=== PATIENT | female | born 2000 | race Caucasian/White ===

== ENCOUNTER 2024-11-12 12:32 | Emergency (ER) | payer OTHER, SELFPAY ==
[2024-11-12 12:42] VITALS: BP 112/71; PULSE 100; RESP 18; TEMP 36.4; O2SAT 100
--- OUTSIDE RECORDS SUMMARY | 2024-11-12 12:51 | XMS_ITS | Clinical Summary ---
Author Organization [facility] Address [address] [place] [id number] Care Team Providers Care Mortgage Loan Officer Name Role Phone Ghanshyam Chaudhary MD Primary Care Provider + Social History Tobacco Use Types Packs/Day Years Used Date Smoking Tobacco: Never Assessed Comments Unknown Sex and Gender Information Value Date Recorded Sex Assigned at Not on file Legal Sex Female 12:08 PM CDT Gender Identity Not on file Sexual Orientation Not on file Plan of Treatment Health Maintenance Due Date Last Done Comments Annual Physical 2003 HPV Vaccines (1 - 3-dose series) 2015 DTaP, Tdap and Td Vaccines ( 1 - Tdap) 2019 Hepatitis B Vaccines (1 of 3 - 19+ 3-dose series) 2019 COVID-19 Vaccine (2023-2 5 season) 2024 Cervical Cancer Screening Pa p Smear (Age 21 to 29) Every 3 Years 01/17/2026 01/17/2023, 06/04/2022, 06/04/2022 Cervical Cancer Screening 01/17/2026 Hepatitis C Completed 01/17/2023 Meningococcal B Vaccine Aged Out No l onger eligible based on patient's age to complete this topic Meningococcal Vaccine Aged Out No josé miguel gia eligible based on patient's age to complete this topic Pneumococcal Vaccine: Pediatrics (0 to 5 Years) and At-Risk Patients (6 to 49 Years) Aged Out No longer eligible b ased on patient's age to complete this topic RSV Immunizations Under 20 Months Aged Out No longer eligible b ased on patient's age to complete this topic Procedures Procedure Name Priority Date/Time Associated Diagnosis Comments HEPATITIS C ANTIBODY Routine 01/17/2023 12:00 PM CDT Encounter for supervision of normal , unspecified, unspecified trimester (HHS/HCC) CYTOPATH CERV/VAG THIN LAYER Routine 01/17/2023 6:56 AM CDT from Last 3 Months or Most Recently Relevant to Health Maintenance Results * HEPATITIS C ANTIBODY (01/17/2023 12:00 PM CDT) HEPATITIS C AB NON-REACTI VE NON-REACT MICHELLE 01/17/2023 7:55 PM CDT [facility] Comment: ANTIBODIES TO HCV NOT DETECTED. DOES NOT EXCLUDE THE POSSIBILITY OF EXPOSURE TO HCV. 01/17/2023 12:0 0 PM CDT Juan Moore MD LABORATORY Final Result [facility] [address] [place] [id number], [id number] * Cytopath Cerv/Vag Thin Layer (01/17/2023 6:56 AM CDT) THIN PREP PAP [address] [id number] Department of Pathology Pathology Report CERVICAL/VAGINAL PAP SMEAR REPORT Name: DENA FAUSTIN Age: 1 2000 (Age: 22) Location: [facility] Sex: F Collected Date: 01/17/2023 Hospital #: [id number] Date Received: 01/21/2023 Date Reported: 02/06/2023 Provider: JUAN CHAUDHARY MD INTERPRETATION CERVICAL/ENDOCERVI DEREK: SATISFACTORY FOR EVALUATION. ENDOCERVICAL/TRANS FORMATION ZONE COMPONENT ABSENT. NEGATIVE FOR INTRAEPITHELIAL LESION OR MALIGNANCY. Electronically Signed Out [facility] DEEPIKA Henning (ASCP) CLINICAL HISTORY Z34.90 ThinPrep Pap Test with HR HPV testing in patient > 21 years with ASC-US diagnosis. Menstrual Status: SPECIMEN SUBMITTED CERVICAL/ENDOCERVI DEREK Specimen Received:1 Thin Prep Vial, Image Assisted Pap (SMD) Please note: The Pap smear is not a diagnostic test. It is a screening test. Negative results on combined screening (Pap test and HPV-DNA) have a high negative predictive value (99.1-100 percent) for cervical cancer. The pap test is not effective in detecting cervical adenocarcinoma. [facility] 01/17/2023 6:56 AM CDT 01/21/2023 6:56 AM CDT Comment:CERVICAL/ENDOCERVICA L us Juan Moore MD PATHOLOGY/CYTOLOGY ORDERABLES F inal Result [facility] [address] [place] [address], from Last 3 Months or Most Recently Relevant to Health Maintenance Insurance AET T Care Teams Mortgage Loan Officer Relationship Specialty Start Date End Date Ghanshyam Chaudhary MD [address] [place] [address] [place] [address] PCP - General FAMILY PRACTICE 01/17/23
--- NOTE | 2024-11-12 12:52 | ED.ABDPAIN ---
HPI - Abdominal Pain General Chief Complaint: Nausea/Vomiting/Diarrhea Stated Complaint: diarrhea Source: patient and RN notes reviewed Mode of arrival: ambulatory Limitations: no limitations History of Present Illness HPI narrative: 24-year-old female presented for complaint of nausea and diarrhea, and subjective fever/chills. Onset 4 days. Also endorses a persistent headache and generalized weakness for the last 2 days. Patient has tolerated crackers and toast. Denies significant abdominal pain or vomiting. Not taking anything for symptoms. had similar symptoms at onset. Denies recent antibiotic use. Related Data Home Medications ?Medication ?Instructions ?Recorded ?Confirmed ?Last Taken ?Type No Home Medications 11/12/24 11/12/24 Unknown History Allergies Allergy/AdvReac Type Severity Reaction Status Date / Time No Known Allergies Allergy Verified 11/12/24 12:50 Review of Systems Review of Systems: CONSTITUTIONAL: Denies body aches, reports fever, chills ENT: Denies rhinorrhea, congestion CARDIOVASCULAR: Denies chest pain, palpitations, or edema. RESPIRATORY: Denies cough or dyspnea. GASTROINTESTINAL: Endorses nausea, diarrhea. Denies abdominal pain, vomiting, hematochezia, melena GENITOURINARY: Denies dysuria, hematuria, or CVA tenderness. SKIN: Denies rash MUSCULOSKELETAL: Denies back pain, joint pain, or myalgia. NEUROLOGIC: Reports headache, weakness denies numbness, tingling All systems reviewed & are unremarkable except as noted in HPI and below PMFSH Comments At time of signature, I have reviewed and agree with nursing past medical, surgical, social and family history unless otherwise noted. Please see nursing chart for further information. There is no relevant family history pertinent to the presenting complaint Exam Narrative: GENERAL: Well-appearing EYES: EOMI. Conjunctivae normal. ENT: Mucous membranes pink and moist. CHEST: No respiratory distress. Clear to auscultation. HEART: Regular rate and rhythm. No murmur appreciated. Normal peripheral pulses. ABDOMEN: abd soft, nondistended, normal active bowel sounds. nontender abdomen; No guarding, rebound tenderness, asymmetry EXTREMITIES: Normal range of motion. SKIN: Warm, dry, no rash. Capillary refill normal. Normal skin turgor. NEURO: No focal deficits. Alert and oriented x3. PSYCH: Normal affect. Course Course Emergency Course: Patient is aware of diagnosis, understands and agrees to treatment plan. Anticipatory guidance given. Patient agrees to follow-up as directed and is aware of reasons to seek care at the emergency department. Portions of this record may have been created with voice recognition software Level of Care: Express Care Visit Vital Signs Vital signs: Vital Signs Temperature 97.6 F 11/12/24 12:42 Pulse Rate 100 11/12/24 12:42 Respiratory Rate 18 11/12/24 12:42 Blood Pressure 112/71 11/12/24 12:42 Pulse Oximetry 100 11/12/24 12:42 Oxygen Delivery Room Air 11/12/24 12:42 Temperature 97.6 F 11/12/24 12:42 Pulse Rate 100 11/12/24 12:42 Respiratory Rate 18 11/12/24 12:42 Blood Pressure 112/71 11/12/24 12:42 Pulse Oximetry 11/12/24 12:42 Oxygen Delivery Room Air 11/12/24 12:42 MDM - Abdominal Pain MDM Narrative Medical decision making narrative: Discussed physical exam findings c/w gastroenteritis. Pt declines ER transfer at this time. Advised supportive measures and signs/symptoms to go to the ER at length. Pt is appropriate for outpt treatment and f/u. Differential Diagnosis Differential diagnosis: Likely abdominal pain, constipation, diverticulitis, gastroenteritis, pancreatitis and small bowel obstruction Discharge Plan Discharge Clinical Impression: Acute diarrhea Patient Disposition: Home Condition: Stable Instructions: Gastroenteritis (ED) Additional Instructions: Stay hydrated. Take small sips of fluid containing electrolytes frequently. Clear liquids (broth, jello, tea, sprite, pedialyte) slowly advance to [place] foods (bananas, rice, applesauce, toast, crackers) Avoid fatty, greasy, fried or spicy foods. Limit dairy until symptoms are improved. [id number] Imodium according to package directions Recommend probiotic such as align or lactobacillus to help with symptoms. You should go to the hospital if you experience persistent nausea and vomiting that does not resolve and does not allow you to tolerate any food or fluids, fevers, increasing abdominal pain, persistent diarrhea, dizziness, fainting, or for any other concerns. Follow up with primary care provider in 2 days. Patient Language: Angolan Follow-up/Referrals: PHYSICIAN,TETRYL DISSOLVER OPERATOR [Primary Care Provider] - Time of Disposition: 12:53
--- OUTSIDE RECORDS SUMMARY | 2024-11-12 12:52 | XMS_ITS | Continuity of Care Document ---
Author Name [facility] Organization 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 Unavailable Unavailable Problems Combined list of problems from Department of Defense and Veterans Affairs facilities. It does not include entries that were removed or entered in error. Problem Status Onset Date Problem Type Date of Resolution Comments Source ASSESSMENT, POST-DEPLOYMENT, DOCUMENTED ON [id number] Inactive 03/15/2022 Condition DoD Acute sinusitis, unspecified Inactive 03/04/2022 Condition DoD Pain in left lower leg Active Condition DoD Pain in right lower leg Active Condition DoD Plantar fascial fibromatosis Active Condition DoD Iron deficiency Active Condition DoD Stress fracture, right tibia Active Condition DoD Stress fracture, left tibia Active Condition DoD Medications Combined list of outpatient medications from Department of Defense and Veterans Affairs facilities.Medications provided include 1) outpatient medications from the last 15 months, and 2) patient-reported medications. Medication Details Route Status Patient Instructions Prescription Expires Prescription Number Last Dispense Date Ordering Provider Order Date Order Qty Source desogestrel -ethinyl estradiol 0.15 mg-0.03 mg oral tablet desogest rel-ethi nyl estradio l 0.15 mg-0.03 mg oral tablet Start Date: 11/17/19 Status: Ordered Repeat number: 1 Ordered 2019 No Facilit y Access Ferrous Sulfate (Ferosul Eq.) Tablet 325 mg Oral Ferrous Sulfate (Ferosul Eq.) Tablet 325 mg Oral Start Date: 11/09/19 Status: Ordered Repeat number: 1 Ordered 2019 No Facilit y Access ibuprofen 600 mg oral tablet ibuprofe n 600 mg oral tablet Start Date: 11/02/19 Status: Ordered Repeat number: 1 Ordered 2019 No Facilit y Access ibuprofen 800 mg oral tablet ibuprofe n 800 mg oral tablet Start Date: 01/14/20 Status: Ordered Repeat number: 1 Ordered 2019 No Facilit y Access METOPROLOL SUCCINATE (metoprolol succinate), 25 MG, TAB ER 24H, ORAL, ACTAVIS/TEV A, 100 ea. BOTTLE Active [id number] 2023 90 Pharmac y Data Transac tion Service Facilit y norgestimat e-ethinyl estradiol 0.25 mg-35 mcg oral tablet norgesti mate-eth inyl estradio l 0.25 mg-35 mcg oral tablet Start Date: 11/02/19 Status: Ordered Repeat number: 1 Ordered 2019 No Facilit y Access SERTRALINE HCL (SERTRALINE HCL), 50MG, TABLET, ORAL, LUPIN PHARMACEU, 500 ea. BOTTLE Active [id number] 2023 30 Pharmac y Data Transac tion Service Facilit y topical cream topical cream Start Date: 12/04/19 Status: Ordered Repeat number: 1 Ordered 2019 No Facilit y Access Allergies, Adverse Reactions, Alerts Combined list of allergies from Department of Defense and Veterans Affairs facilities. It does not include entries that were removed or entered in error. Substance Category Reaction Severity Reaction type Status Date Reported Comments Source No Known Allergies Drug allergy (disorder) active 08/23/2021 [place] [place] [address] Immunizations Combined list of available immunizations from the Department of Defense and Veterans Affairs facilities. 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 Source Influenza, injectable, quadrivalent, preservative free 0 2021 [id number] SmithKline (SKB) complet ed Influenza , injectabl e, quadrival ent, preservat gee free DoD anthrax vaccine 1 2021 [id number] [facility] BioDefense [facility] ([facility]) complet ed anthrax vaccine DoD typhoid Vi capsular polysaccharid e vaccine 1 2021 [id number] 101 Sanofi Pasteur (PMC) complet ed typhoid Vi capsular polysacch aride vaccine DoD Influenza, injectable, quadrivalent, preservative free 1 2020 [id number] 150 SmithKline (SKB) complet ed Influenza , injectabl e, quadrival ent, preservat gee free DoD SARS-COV-2 (COVID-19) vaccine, mRNA, spike protein, LNP, preservative free, 30 mcg/0.3mL dose 2 2020 [id number] 208 Pfizer, Inc (PFR) complet ed SARS-COV- 2 (COVID-19 ) vaccine, mRNA, spike protein, LNP, preservat gee free, 30 mcg/0.3mL dose DoD SARS-COV-2 (COVID-19) vaccine, mRNA, spike protein, LNP, preservative free, 30 mcg/0.3mL dose 1 2020 [id number] 208 Pfizer, Inc (PFR) complet ed SARS-COV- 2 (COVID-19 ) vaccine, mRNA, spike protein, LNP, preservat gee free, 30 mcg/0.3mL dose DoD hepatitis B vaccine, pediatric or pediatric/ado lescent dosage 3 2020 [id number] 08 eCircleine ([place]) complet ed hepatitis B vaccine, pediatric or pediatric /adolesce nt dosage DoD Influenza, injectable, quadrivalent, preservative free 1 2019 [id number] 150 Seqirus (SEQ) complet ed Influenza , injectabl e, quadrival ent, preservat gee free DoD varicella virus vaccine 2019 [id number] 21 Merck & Company Inc complet ed varicella virus vaccine 12/17/19 Given Ambulat ory Pharmac y hepatitis B pediatric/ado lescent 2019 [id number] 08 GlaxoSmithKli ne complet ed hepatitis B pediatric /adolesce nt 12/17/19 Given Ambulat ory Pharmac y hepatitis B pediatric/ado lescent 2019 [id number] 08 GlaxoSmithKli ne complet ed hepatitis B pediatric /adolesce nt 12/17/19 Given Ambulat ory Pharmac y varicella virus vaccine 2019 [id number] 21 Merck & Company Inc complet ed varicella virus vaccine 12/17/19 Given Ambulat ory Pharmac y hepatitis B vaccine, pediatric or pediatric/ado lescent dosage 1 2019 [id number] 08 DilipKline (SKB) complet ed hepatitis B vaccine, pediatric or pediatric /adolesce nt dosage DoD varicella virus vaccine 1 2019 [id number] 21 Merck (MSD) complet ed varicella virus vaccine DoD hepatitis B pediatric/ado lescent 2019 [id number] 08 GlaxoSmithKli ne complet ed hepatitis B pediatric /adolesce nt 11/02/19 Given Ambulat ory Pharmac y varicella virus vaccine 2019 [id number] 21 Merck & Company Inc complet ed varicella virus vaccine 11/02/19 Given Ambulat ory Pharmac y adenovirus vaccine, live 2019 [id number] 8 143 Teva Pharmaceutica ls complet ed adenoviru s vaccine, live 11/02/19 Given Ambulat ory Pharmac y varicella virus vaccine 2019 zzLef t Arm [id number] 21 Merck & Company Inc complet ed varicella virus vaccine 11/02/19 Given Ambulat ory Pharmac y adenovirus vaccine, live 2019 zzLef t Arm [id number] 8 143 Teva Pharmaceutica ls complet ed adenoviru s vaccine, live 11/02/19 Given Ambulat ory Pharmac y hepatitis B pediatric/ado lescent 2019 zzLef t Arm [id number] 08 GlaxoSmithKli ne complet ed hepatitis B pediatric /adolesce nt 11/02/19 Given Ambulat ory Pharmac y hepatitis B vaccine, pediatric or pediatric/ado lescent dosage 1 2019 LASHONDA CARDONA [id number] 08 Cardize (SKB) complet ed hepatitis B vaccine, pediatric or pediatric /adolesce nt dosage DoD varicella virus vaccine 1 2019 LASHONDA CARDONA [id number] 21 Merck (MSD) complet ed varicella virus vaccine DoD Adenovirus, type 4 and type 7, live, oral 1 2019 LASHONDA CARDONA [id number] 143 [facility] ([facility]) complet ed Adenoviru s, type 4 and type 7, live, oral DoD meningococcal A,C,Y,W-135 (MCV4P) 2019 [id number] 114 sanofi pasteur complet ed meningoco ccal A,C,Y,W-1 35 (MCV4P) 10/29/19 Given Ambulat ory Pharmac y tetanus, diphtheria, acellular pertu is 2019 [id number] 115 GlaxoSmithKli ne complet ed tetanus, diphtheri a, acellular pertussis 10/29/19 Given Ambulat ory Pharmac y poliovirus vaccine, inactivated 2019 [id number] 10 sanofi pasteur complet ed polioviru s vaccine, inactivat ed 10/29/19 Given Ambulat ory Pharmac y tetanus, diphtheria, acellular pertu is 2019 [id number] 115 Pythagoras SolaroSmithKli ne complet ed tetanus, diphtheri a, acellular pertussis 10/29/19 Given Ambulat ory Pharmac y poliovirus vaccine, inactivated 2019 [id number] 10 sanofi pasteur complet ed polioviru s vaccine, inactivat ed 10/29/19 Given Ambulat ory Pharmac y meningococcal A,C,Y,W-135 (MCV4P) 2019 [id number] 114 sanofi pasteur complet ed meningoco ccal A,C,Y,W-1 35 (MCV4P) 10/29/19 Given Ambulat ory Pharmac y poliovirus vaccine, inactivated 1 2019 [id number] 10 Sanofi Pasteur (PMC) complet ed polioviru s vaccine, inactivat ed DoD meningococcal polysaccharid e (groups A, C, Y and W-135) diphtheria toxoid conjugate vaccine (MCV4P) 1 2019 [id number] 114 Sanofi Pasteur (PMC) complet ed meningoco ccal polysacch aride (groups A, C, Y and W-135) diphtheri a toxoid conjugate vaccine (MCV4P) DoD tetanus toxoid, reduced diphtheria toxoid, and acellular pertu is vaccine, adsorbed 1 2019 [id number] 115 [facility] (SKB) complet ed tetanus toxoid, reduced diphtheri a toxoid, and acellular pertussis vaccine, adsorbed DoD measles virus vaccine 0 2019 05 () Not Given measles virus vaccine DoD rubella virus vaccine 0 2019 06 () Not Given rubella virus vaccine DoD mumps virus vaccine 0 2019 07 () Not Given mumps virus vaccine DoD hepatitis A vaccine, adult dosage 0 2019 52 () Not Given hepatitis A vaccine, adult dosage DoD Results Combined list of recent chemistry, hematology and other laboratory results from Department of Defense and Veterans Affairs, ranging from 15 months to all on record, depending upon the facility. Order Name Results Value Reference Range Date Interpretation Specimen Comments Source Infectiou s Disease HIV-1/O/2 Non-Reac tive 1 (11/20/23 8:05 AM) 11/19 N Interpretiv e Data: INTERPRETAT ION: This method is a screening procedure for the detection of HIV p24 Antigen and Antibodies to HIV-1, including Group O, and/or HIV-2. NON-REACTIV E: HIV-1 antigen and HIV-1 / HIV-2 antibodies were not detected. No laboratory evidence of HIV infection. A negative test result does not exclude the possibility of exposure to or infection with HIV. HIV antibodies and/or p24 antigen may be undetectabl e in some stages of the infection and in some clinical conditions. If acute HIV infection is suspected, consider submitting another specimen to a reference laboratory for HIV-1 RNA. SCREEN REACTIVE - CONFIRMATIO N TO FOLLOW: Possible presence of HIV-1antibo dies, HIV-2 antibodies and/or HIV-1 p24 antigen. Specimen will reflex to the confirmatio n testing that fulfills the Center for Disease Control and Prevention' s HIV diagnostic algorithm. Refer to [facility] Lab Guide for additional information : [email or web address] x Testing performed by [employer] sandra diaz. 5600A-U CIDCOSADialogfeed EPILAB Miscellan eous Sendouts Repository Sample Received (11/20/23 8:05 AM) 11/19 N 5600A-U SAFSAM EPILAB Encounters Combined list of: 1) Encounters from Department of Veterans Affairs facilities going backup to the last 18 months, not all VA inpatient encounters are included; 2) Encounters from the Department of Defense facilities going backup to 280 months. Location Location Details Encounter Type Encounter Number Reason For Visit Attending Provider ADM Date DC Date Status Disposition Source [facility] [place] [address] [id number] Notes Entered by: Vahe MIRANDA 02 Nov 2019 0711 ------- ------- ------- ------- -- Jay obando chamberlain pain (No SALLY/Masood grande appt @ [facility]) MICHAEL DE LA CRUZ 11/01 Released with Work/Duty Limitations [facility] [place] [address] [place] [place] [address](Bib ergy, VARGHESE) OUTPATIENT [id number] Notes Entered by: Raj CARDONA 02 Nov 2019 1429 ------- ------- ------- ------- -- CATIE Betancourt 11/01 [facility] w/[facility]itations [facility] [place] [place] [address](A llergy, [facility]) [place] [address](Opt ometry Clinic BMT [facility]) OUTPATIENT [id number] STEVE CHRISTENSEN 11/01 Released w/o Limitations [facility] [place] [address](O ptometr y Clinic BMT [facility]) [place] [address](ATR 326 TRS,BMT) OUTPATIENT [id number] Notes Entered by: BETI DALLAS 04 Nov 2019 0927 ------- ------- ------- ------- -- bilater al leg pain LASHONDA EDGE 11/03 Released with Work/Duty Limitations [facility] [place] [place] [address](A TR 326 TRS,BMT ) [place] [address]([facility]) OUTPATIENT [id number] BIlat leg pain LEROY ABRAHAM 11/08 Released w/o Limitations [facility] [place] [address](S ports Medicin e [facility]) [place] [address]([facility]) OUTPATIENT [id number] Notes Entered by: KENNETH BERRIOS 10 Nov 2019 1206 ------- ------- ------- ------- -- TUTU Long 11/09 Released w/o Limitations [facility] [place] [address]([facility]) [place] [address](ATR 326 TRS,BMT) OUTPATIENT [id number] Notes Entered by: FRANDY ROBLEDOI Josseline 12 Nov 2019 0650 ------- ------- ------- ------- -- F/u bilater al lower leg pain ROBLEDO, DENA 11/11 Released w/o Limitations [facility] [place] [address](A TR 326 TRS,BMT ) [place] [address]([facility]) OUTPATIENT [id number] Notes Entered by: JESSE NAVA 17 Nov 2019 0953 ------- ------- ------- ------- -- Control SERAVAN FORTE BHAVESH 11/16 [facility]ased w/o Limitations [facility] [place] [address]([facility]) [place] [place] [address]([facility]) OUTPATIENT [id number] Notes Entered by: Vahe MIRANDA 04 Dec 2019 0941 ------- ------- ------- ------- -- Rash/bu mps on back VALERIA GUNN 12/03 Released w/o Limitations [facility] [place] [address] [employer]([facility]) OUTPATIENT [id number] discuss chamberlain splints 364 PEDRO FIELD 01/13 Released with Work/Duty Limitations [employer]([facility]) [employer](Phy sical Therapy) OUTPATIENT [id number] Pain in left lower leg LYUBOV HERNANDEZ 01/25 Released w/o Limitations [employer](P hysical Therapy ) [employer]([facility] dent [facility]) TELE CONSULT [id number] Notes Entered by: SAI ZEPEDA 08 Feb 2020 1103 ------- ------- ------- ------- -- MRI R Tibia, Ortho recomme nd by radiolo gist SARAH BORJAS 02/07 Referred for Appointment [employer]([facility]) [employer]([facility]) TELE CONSULT [id number] Notes Entered by: SARAH BORJAS 25 Feb 2020 1455 ------- ------- ------- ------- -- Ortho communi cation sheet SARAH BORJAS 02/24 Referred for Appointment [employer](O peratio nal Primary Care) [employer](Phy sical Therapy) TELE CONSULT [id number] Notes Entered by: Nico DURBIN 31 Mar 2020 0844 ------- ------- ------- ------- -- PATIENT FAILED TO CALL OR SHOW FOR FUTURE APPT KACIE DURBIN 03/31 [facility](P hysical Therapy ) [facility])([facility]) OUTPATIENT [id number] Initial PHA MINDY CAMPOS 06/04 Released w/o Limitations [address] [place] [address])(06 21 Primary Care Clinic) [address] [place] [address])([facility]) OUTPATIENT [id number] Notes Entered by: Jose CAMPOS 29 Jun 2020 1305 ------- ------- ------- ------- -- dhra1 MINDY CAMPSO 06/29 Released w/o Limitations [address] [place] [address])(06 21 [facility]) [address] [place] [address])([facility]) TELE CONSULT [id number] Notes Entered by: PAULINE BARRERA 30 Jun 2020 1112 ------- ------- ------- ------- -- PHAQ review DOMINGUEZ BARRERA 06/30 Other Not Elsewhere Classified [address] [place] [address])(06 21 [facility]) [address] [place] [address])(126 [facility]) OUTPATIENT [id number] Notes Entered by: Jose CAMPOS 04 Jul 2020 0747 ------- ------- ------- ------- -- phaq MINDY CAMPOS 07/04 Released w/o Limitations [address] [place] [address])(06 21 [facility]) [address] [place] [address])([facility]) OUTPATIENT [id number] COVID Screeni ng (Asympt omatic) AIDE DOTSON OPENJosseline 07/06 Released w/o Limitations [address] [place] [address])(P andemic Virus) [address] [place] [address])([place] [facility]) TELE CONSULT [id number] Notes Entered by: BISI MCKENNA 07 Jul 2020 1428 ------- ------- ------- ------- -- Negativ e COVID Result BISI MCKENNA 07/07 Other Not Elsewhere Classified [address] [place] [address])(P andemic Virus) [address] [place] [address])(126 [facility]) OUTPATIENT [id number] Audiogr SUSY Soler 12/17 Released w/o Limitations [address] [place] [address])(06 21 Primary Care Clinic) [address] [place] [address])(126 [facility]) OUTPATIENT [id number] Notes Entered by: ALEXI OREILLY 18 Dec 2021 0934 ------- ------- ------- ------- -- MINDY Wilson 12/18 Released w/o Limitations [address] [place] [address])(06 21 [facility] Care [facility]) [address] [place] [address])(126 [facility]) OUTPATIENT [id number] Notes Entered by: Jose CAMPOS 18 Dec 2021 0950 ------- ------- ------- ------- -- phaq MINDY CAMPOS 12/18 Released w/o Limitations [address] [place] [address] Pool [facility])([facility]) [address] [place] [address])([place] dem[facility] Virus) OUTPATIENT [id number] 126 deployJOSIAS Martines 01/15 Released w/o Limitations [address] [place] [address])(P andemic Virus) Theater Facility OUTPATIENT [id number] Theater Provider 03/04 Released w/o Limitations [facility] OUTPATIENT [id number] Theater Provider 03/15 Released w/o Limitations Theater Facilit y [address] [place] [address])([facility] Primary Care [facility]) TELE CONSULT [id number] Notes Entered by: PAULINE BARRERA 04 Apr 2022 1201 ------- ------- ------- ------- -- Follow up DOMINGUEZ BARRERA 04/04 Other Not Elsewhere Classified [address] [place] [address])( Primary Care Clinic) [address] [place] [address])([address] [place] [address]) TELE CONSULT [id number] Notes Entered by: CHUY BAUTISTA 10 May 2022 1254 ------- ------- ------- ------- -- Follow up HERBER MUELLER 05/10 Other Not Elsewhere Classified [address] [place] [address])([facility]) [address] [place] [address])([address] [place] [address]) TELE CONSULT [id number] Notes Entered by: CHUY BAUTISTA 14 Jun 2022 1048 ------- ------- ------- ------- -- Follow up HERBER MUELLER 06/14 Other Not Elsewhere Classified [address] [place] [address] Pool B ([facility])(06 21 Primary Care Clinic) [address] [place] [address] Group Pool [facility])([facility] Care Clinic) TELE CONSULT [id number] Notes Entered by: CHUY BAUTISTA 17 Jul 2022 0944 ------- ------- ------- ------- -- Follow up HERBER MUELLER 07/17 Other Not Elsewhere Classified [facility] Medical Group Pool [facility])(06 21 Primary Care Clinic) [facility] Medical Group Pool B [facility]) OUTPATIENT [id number] DHA3 RIKY SILVA 07/29 Released w/o Limitations [facility] Medical Group Pool [facility] ([facility])(06 21[facility] Care [facility]) [address] [place] [address])([address] [place] [address]) TELE CONSULT [id number] Notes Entered by: Eagle HAILE 18 Sep 2022 1455 ------- ------- ------- ------- -- Follow- up SHERRY HAILE 09/18 Other Not Elsewhere Classified [facility] Medical Group [facility])(06 [facility] Care [facility]) [address] [place] [address] Group [facility])([address] [place] [address] Care Clinic) OUTPATIENT [id number] Notes Entered by: Jose CAMPOS 19 Sep 2022 1629 ------- ------- ------- ------- -- profile MINDY CAMPOS 09/19 Released w/o Limitations [facility] Medical Group Pool B ([facility])(06 21 Primary Care Clinic) [address] [place] [address] Pool B ([facility])([facility] Care Clinic) OUTPATIENT [id number] FOLLOWU P WITH RIKY RUBIO 09/29 Released w/o Limitations [facility] Medical Group Pool B ([facility])(06 21 Primary Care Clinic) [address] [place] [address] Pool B ([facility])([address] [place] [address] Care [facility]) TELE CONSULT [id number] Notes Entered by: AYAN ORANTES 26 Oct 2022 1504 ------- ------- ------- ------- -- HERBER Saeed 10/26 [employer] Pool BRIAN ([facility])(1 26th Primary Care Clinic) 0055A-375 th [facility] [id number] MINDY MORAN 11/19 Discharge Disposition: Home or Self Care 0055A-3 [facility]th [employer]- Pool 0055H-375 th [employer] Clinic [id number] ELIANA LMORGAN 11/19 Discharge Disposition: Home or Self Care 005H-3 75th [facility] Pool [id number] MDG Between Visit [id number] 05/05 Discharge Disposition: Home or Self Care 8277R-1 82 MDG [id number] MDG Between Visit [id number] 10/30 Discharge Disposition: Home or Self Care 8277R-1 82 MDG Procedures Combined list of: 1) Procedures from Department of Veterans Affairs facilities going back up to thelast 18 months, not all VA non-surgical procedures are included; 2) All procedures from the Department of Defense facilities. Procedure Procedure Type Code Date Perfomer Comments Sourc e No data available for this section Ambulatory Pharmacy PSYCHOLOGICAL OR NEUROPSYCHOLOGICAL TEST ADMINISTRATION, WITH SINGLE AUTOMATED, STANDARDIZED INSTRUMENT VIA ELECTRONIC PLATFORM, WITH AUTOMATED RESULT ONLY 022 [facility] TELE ASSESS & MGT SRV PROV QUAL NONPHYS HLTH CARE PRO TO EST PAT,PARENT,GUARD NOT ORIG REL ASSESS & MGT SRV PROV W/IN PREV 7 DAYS NOR LEAD ASSESS & MGT SRV/PX W/IN NXT 24 HR/SOON APT;5-10 MIN MED DIS 021 DoD APPLICATION OF A MODALITY TO 1 OR MORE AREAS; HOT OR COLD PACKS 020 DoD Hepatitis B Vaccine (Active); To 11 Years Hepatitis B Vaccine (Active); To 11 Years [id number] LASHONDA CARDONA Hep B, adolescent or pediatric (19yr and younger); Series #: 1; 0.5 mL; IM; Left Arm; Mfg: eCircleine; Lot: [id number]; VIS given (Greg: 01/08/19; 03/31/15 - Multiple). [facility] Vaccines Viral Varicella (Active) Vaccines Viral Varicella (Active) [id number] BRENDAN LASHONDA GIFFORDANNE Varicella; Series #: 1; 0.5 mL; SC; Left Arm; Mfg: Merck; Lot: [id number]; VIS given (Greg: 01/08/2019). [facility] Vaccines Vaccines 63996 BRENDAN LASHONDA LOVETTE Adenovirus Type 4 and 7; Series #: 1; 2 tablets; PO; Left Arm; Mfg: Trivie ; Lot: [id number]; VIS given (Greg: 06/03/2019). [facility] Immunization Administration One Vaccine Immunization Administration One Vaccine 40820 LASHONDA CARDONA [facility] Immunization Administration Each Additional Vaccine Immunization Administration Each Additional Vaccine 75391 LASHONDA CARDONA [facility] Immunization Admin By Intranasal / Oral Route One Vaccine Immunization Admin By Intranasal / Oral Route One Vaccine [id number] LASHONDA CARDONA [facility] Spectacles Services Fitting Monofocals (Not For Aphakia) Spectacles Services Fitting Monofocals (Not For Aphakia) [id number] STEVE CHRISTENSEN [facility] Screening Test Of Visual Acuity, Quantitative, Bilateral Screening Test Of Visual Acuity, Quantitative, Bilateral [id number] Supervised Injection Intramuscular Supervised Injection Intramuscular [id number] MONTY BERRIOS [facility] Athletic Training Re-evaluation Athletic Training Re-evaluation 11849 DENA ROBLEDO [facility] -Supervised Group Educational Services -Supervised Group Educational Services [id number] VAN JAVIER [facility] Psychiatric Evaluation Psychiatric Evaluation [id number] DORA MILIAN [facility] Non-Physician Phone Call To Patient/Provider Brief (5-10min) Non-Physician Phone Call To Patient/Provider Brief (5-10min) [id number] BISI MCKENNA [facility] Psychometric Neuropsych Testing Battery Admin By Computer Psychometric Neuropsych Testing Battery Admin By Computer [id number] ADDI ZAPATA [facility] Modalities Cryotherapy Cold Packs Modalities Cryotherapy Cold Packs [id number] LYUBOV HERNANDEZ [facility] Social History Combined list of available smoking, tobacco, and other social history from [facility] Defense and [facility] facilities. Social History Type Response Date Comment Sour e Sex Representation Female (finding) 02/15/2020 Unknown Organization Sexual Orientation Ambula tory Pharmacy Gender identity Ambulator y Pharmacy This section is an empty social history section. DoD Assessment and Plan Combined list of future care activities from Department of Defense and Veterans Affairs facilities (e.g., assessment and plan notes, appointments, orders, and referrals). Additional future care activities may be listed in the Plan of Care section. 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 Patient s PHAQ responses suggest Routine i tems requiring action. Retention Waiver: N o Profile: Y es Anxiety disorder - Member takes Sertraline-advised to turn in current documentation, 03/25/23-11/20/2023 Medications: Medication List Active Medications Documented desogestrel-ethinyl estradiol: . emollients, topical: . ferrous sulfate (iron sulfate): . ibuprofen: . ibuprofen: . norgestimate-ethinyl estradiol: . Medications Inactivated in the Last 72 Hours No medications found. 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 Y AICHA [place] Disability Rating: N o If, Yes please update below. [employer] PHAQ review note: PHAQ review completed. Member due to complete MHA, PHA, Dental, and Influenza. Member is a Dental Class 4.Member on recall roster for MHA during Mar. Contacted member 03/28/2023 regarding her follow up appts with her PCM. Member stated she is still taking the Sertraline, but she hasn't really had any follow up appts lately. Educated member that we need documentation from her provider stating she is still taking the medication, whether they have increased or decreased the dose, whether it is safe to take during her , ect. Member stated she told them she was , and they said to keep taking the medication. Educated her again that we need the dr notes stating that. Advised I will email her a [id number] for her to fill out, sign, and return to us. Member verbalized understanding. [id number] emailed. Member is enrolled in the [employer]. Member denies any allergies. She reports wearing glasses and contacts. Member reports having GMIs. Member endorses very good health with no c/o pain. Member endorses taking Folic Acid Per her visit with [employer] Su[employer] in October,, member was told to provide follow up documentation regarding her throat, her mood, and her HPV. To date, we have not received any documentation. Member aware of requirements. PHAQ ready for PCM review and signature. 11/12/2024 Ambulatory Pharmacy Functional Status Combined list of recent functional and cognitive assessments recorded at [facility] ([facility]).VA Functional [facility] Measurement (FIM) Scale: 1 = Total Assistance (Subject = 0% +), 2 = Maximal Assistance (Subject = 25% +), 3 = Moderate Assistance (Subject = 50% +), 4 = Minimal Assistance (Subject = 75% +), 5 = Supervision, 6 = Modified [facility] (Device), 7 = Complete [facility] (Timely, Safely). Assessment Date/Time Source Assessment Type Assessment Skill Assessment Score Assessment Details No data available for this section
== END 2024-11-12 12:54 | disposition home or self-care (01) ==
PROVIDERS: Emergency Provider Nurse Practitioner Family
DX: R19.7 Diarrhea, unspecified (principal)
CPT/HCPCS: 99211; G0463

== ENCOUNTER 2025-01-11 14:22 | Outpatient (CLI) | payer OTHER, SELFPAY ==
--- NOTE | ~2025-01-11 | US_ITS ---
EXAMINATION: US OB <= 14 weeks fetus DATE: 01/11/2025 15:12 INDICATION: Cramping and amenorrhea during first trimester TECHNIQUE: Real-time pelvic ultrasound utilizing both a transvaginal and transabdominal probe was pe rformed. The interpreting radiologist was not present for the study. COMPARISON: None. FINDINGS: The uterus measures 14.3 x 5.8 x 7.0 cm. There is an intrauterine gestational sac. A yolk sac and fe scott pole are identified. The crown rump length measures 2.1 cm, which correlates with an estimated ge stational age of 8 weeks and 5 days. heart motion is identified measuring 171 beats per minute (bpm) by M-mode Doppler. The right ovary measures 2.3 x 2.2 x 1.6 cm. The left ovary measures 2.6 x 2.4 x 1.9 cm. There is no free fluid in the pelvis. IMPRESSION: 1. Single living fetus with heart rate of 171 bpm. 2. Gestational age by ultrasound of 8 weeks 5 day(s) +/- 5 day(s) with ultrasound estimated date of delivery (CHRISTINA) of 08/18/2025. Reviewed, dictated and finalized at location A. IMPRESSION: 1. Single living fetus with heart rate of 171 bpm. 2. Gestational age by ultrasound of 8 weeks 5 day(s) +/- 5 day(s) with ultraso und estimated date of delivery (CHRISTINA) of 08/18/2025.
== END 2025-01-11 14:23 | disposition home or self-care (01) ==
PROVIDERS: Visit Provider Nurse Practitioner Obstetrics & Gynecology
DX: N91.2 Amenorrhea, unspecified (principal); O26.899 Other specified pregnancy related conditions, unspecified trimester; R10.2 Pelvic and perineal pain; O36.80X0 Pregnancy with inconclusive fetal viability, not applicable or unspecified; Z3A.00 Weeks of gestation of pregnancy not specified
CPT/HCPCS: 76801

== ENCOUNTER 2025-04-06 20:08 | Observation (INO) | payer OTHER, BC, SELFPAY ==
[2025-04-06] VITALS (37 sets, daily range): BP systolic 105–122; BP diastolic 56–73; PULSE 28–116; TEMP 36.6; O2SAT 75–100; BMI 22.4
[2025-04-06 20:44] LABS: Add Urine Microscopic? YES; Appearance Urine Clear (Clear); Glucose Urine UA Negative (Negative); Leukocyte Esterase Ur Trace LEU/UL (Negative); Nitrate Urine Negative (Negative); Non Pathogenic Casts 0-2; Specific Grav Ur 1.003 (1.001-1.035)
[2025-04-06] MEDS: LACTATED RINGERS 1,000 ML 999 ML IV CONT (21:23)
[2025-04-06] MEDS: TERBUTALINE SULFATE 1 MG/ML VIAL 0.25 MG SUB-Q (21:34)
--- NOTE | 2025-04-06 23:01 | OBADM ---
This patient, Dena Arizmendi, admitted to the OB room OB Post [facility] for observation. Patient/family oriented to hospital policies and general routines including ID bracelet, bed and alarms, visiting hours, pain management, procedures, bathroom and other care routines, personal items, smoking policy, room service/diet, and visiting hours. Patient/Family are encouraged to report perceived risks to care and to ask questions if they do not understand what they are told or what they should do.
--- NOTE | 2025-04-06 23:10 | PC.NURSE ---
2024- Patient arrives to OB unit with complaints of back pain, and cramping as well as nausea. Patient states it started about an hour and a half prior to arrives and the cramping seems to be about every 7 1/2 minutes. Patient denies any vaginal bleeding or leaking of fluid. Patient denies any vaginal pressure. Patient is rating the pain a 2/10. Patient states they she has been feeling baby move good. Patient states she has no complications this so far. RN collected urine sample. 2035- RN placed patient on toco monitor after FHT were doppled. FHT obtained with doppler ranging from 135's-150's. RN gave patient the marker button and instructed patient to joseluis the start of the cramping and then again when the cramping eases. Abdomen soft to palpation at this time. 2048- TOCO adjusted. Contraction palpated mild to moderate lasting about 50 seconds. 2054- RN notified Dr. Gray of patient arrival as well as patient complaints. RN notified MD of FHT obtained by doppler. RN also notified MD of contractions and how they are palpating and how often patient is feeling them and how often they are picking up after adjusting toco. MD gave orders for 1L of LR bolus, one dose of terb, and to obtain a cervical length via ultrasound order. 2102- RN notified Dr. Gray that ultrasound is not in house, MD gave orders to just do the fluid bolus and terb and if contractions subside, to let her know. 2252- RN notified Dr. Gray that patient is not feeling cramping anymore, but has used the marker button three times since givine the terb. RN notified MD that patient states that what she is marking feels very light, almost not even there, but she could feel something, so she marked it. RN notified MD that what she was marking was 20 seconds each time. RN notified MD that abdomen is soft to palpation. MD gave orders to d/c patient if patient is comfortable going home and to put her on pelvic rest until she is seen in the office. MD also gave order for a school note for patient. 2256- RN at bedside discussing plan of care with patient. Patient agrees with plan of care. 2308- RN at bedside discussing discharge instructions. Patient verbalized understanding and has no questions at this time. Patient verbalized knowledge of when to return. Patient to call OB office tomorrow.
--- NOTE | 2025-04-07 08:44 | PM.OBTRLD ---
OB - Triage/Final Diagnosis Visit Information Comments/Additional reasons for admission: I have assessed the risk for this patient, Dena Arizmendi, and determined that she would benefit from observation care. Evaluation Laboratory results: Laboratory Tests 04/06/25 20:34 Urine Color Yellow Urine Appearance Clear Urine pH 7.5 Ur Specific [place] 1.003 Urine Protein Negative Urine Glucose (UA) Negative Urine Ketones Negative Ur Blood (Man) Negative Urine Nitrate Negative Urine Bilirubin Negative Urine Urobilinogen 0.2 Leukocyte Esterase Rfl Trace H Urine RBC 0-2 Urine WBC 0-5 Ur Squamous Epith Cells Occasional Urine Bacteria None seen Urine Casts 0-2 Vital signs: Vital Signs - 24 hr 04/06/25 20:26 04/06/25 20:30 04/06/25 20:31 Temperature 98 F Pulse Rate 84 87 Blood Pressure 122/71 113/73 Pulse Oximetry 100 82 L 04/06/25 20:36 04/06/25 20:36 04/06/25 20:37 Temperature Pulse Rate Blood Pressure Pulse Oximetry 95 83 L 100 04/06/25 20:37 04/06/25 20:42 04/06/25 20:45 Temperature Pulse Rate 83 Blood Pressure 105/70 Pulse Oximetry 100 95 04/06/25 20:47 04/06/25 20:52 04/06/25 20:57 Temperature Pulse Rate Blood Pressure Pulse Oximetry 97 97 99 04/06/25 21:00 04/06/25 21:02 04/06/25 21:07 Temperature Pulse Rate 82 Blood Pressure 108/61 Pulse Oximetry 96 96 04/06/25 21:26 04/06/25 21:31 04/06/25 21:36 Temperature Pulse Rate Blood Pressure Pulse Oximetry 100 100 100 04/06/25 21:41 04/06/25 21:46 04/06/25 21:49 Temperature Pulse Rate Blood Pressure Pulse Oximetry 100 100 100 04/06/25 21:54 04/06/25 21:56 04/06/25 22:03 Temperature Pulse Rate 83 Blood Pressure 106/62 Pulse Oximetry 100 75 L 04/06/25 22:03 04/06/25 22:08 04/06/25 22:13 Temperature Pulse Rate Blood Pressure Pulse Oximetry 75 L 98 99 04/06/25 22:18 04/06/25 22:23 04/06/25 22:24 Temperature Pulse Rate 96 Blood Pressure 119/60 Pulse Oximetry 100 98 04/06/25 22:28 04/06/25 22:33 04/06/25 22:38 Temperature Pulse Rate Blood Pressure Pulse Oximetry 99 98 99 04/06/25 22:43 04/06/25 22:48 04/06/25 22:53 Temperature Pulse Rate Blood Pressure Pulse Oximetry 99 99 100 04/06/25 22:57 04/06/25 23:00 04/06/25 23:02 Temperature Pulse Rate 75 Blood Pressure 109/56 L Pulse Oximetry 100 100 04/06/25 23:07 Temperature Pulse Rate Blood Pressure Pulse Oximetry 100 Final Diagnosis (1) Abdominal pain affecting : Code(s): O26.899 - Other specified related conditions, unspecified trimester; R10.9 - Unspecified abdominal pain Status: Acute
== END 2025-04-06 23:15 | disposition home or self-care (01) ==
PROVIDERS: Admitting Provider Obstetrics & Gynecology; Visit Provider Obstetrics & Gynecology
DX: O26.892 Other specified pregnancy related conditions, second trimester (principal); Z3A.21 21 weeks gestation of pregnancy; R10.9 Unspecified abdominal pain
CPT/HCPCS: 81001; 96360; 96372; G0378; G0379; J3105; J7120